=== PATIENT | female | born 1940 | race American Indian/Alaskan Native ===

== ENCOUNTER 2017-01-27 11:07 | Emergency (ER) | payer MEDICARE ==
[2017-01-27 11:47] VITALS: BP 128/67
== END 2017-01-27 11:44 | disposition left against medical advice (07) ==
LOC: ED 11:07
DX: H57.11 Ocular pain, right eye (principal); Z53.21 Procedure and treatment not carried out due to patient leaving prior to being seen by health care provider

== ENCOUNTER 2018-10-30 22:40 | Inpatient (IN) | payer MEDICARE ==
[2018-10-30] MEDS ORDERED: CATAPRES ONE (23:11)
[2018-10-30] MEDS ORDERED: CATAPRES PO ONE (23:15)
[2018-10-30 23:46] LABS: Basophils % (Auto) 0.6 % (0.0-1.8); Eosinophils # (Auto) 0.3 K/mm3 (0.0-0.4); Eosinophils % (Auto) 4.4 % (0.0-4.3); Hematocrit 32.4 % (30.3-42.9); Lymphocytes # (Auto) 3.2 K/mm3 (1.2-5.4); Lymphocytes % (Auto) 43.4 % (13.4-35.0); Mean Corpuscular HGB Conc 34 % (30-34); Mean Corpuscular Volume 83 fl (79-97); Monocytes # (Auto) 0.6 K/mm3 (0.0-0.8); Monocytes % (Auto) 7.9 % (0.0-7.3); Platelet Count 244 K/mm3 (140-440); Red Blood Count 3.92 M/mm3 (3.65-5.03); Red Cell Distribution Width 14.5 % (13.2-15.2)
[2018-10-30 23:57] LABS: INR 1.01 (0.87-1.13)
[2018-10-30 23:58] LABS: Partial Thromboplastin Time 24.1 Sec. (24.2-36.6)
[2018-10-31 00:22] LABS: Alanine Aminotransferase 8 units/L (7-56); Albumin 3.8 g/dL (3.9-5); BUN/Creatinine Ratio 20; Blood Urea Nitrogen 22 mg/dL (7-17); Hemolysis Index 9
--- NOTE | 2018-10-31 01:58 | Emergency Department Report ---
ED Dizziness HPI - General Chief Complaint: Dizziness Stated Complaint: DIZZINESS Time Seen by Provider: 10/31/18 01:13 Source: patient, EMS Mode of arrival: Ambulatory Limitations: No Limitations - History of Present Illness MD Complaint: dizziness, lightheadedness, near syncope -: Sudden, This evening Timing: sudden onset Description: "room spinning", lightheadedness, off-balance, nausea History of Same: No History of Trauma: No Severity: moderate Improves With: remaining still Worsens With: movement, exertion Associated Symptoms: denies other symptoms - Related Data Allergies Allergy/AdvReac Type Severity Reaction Status Date / Time amiodarone Allergy Anaphylaxis Verified 10/30/18 23:18 amlodipine Allergy Shortness Verified 10/30/18 23:12 of Breath latex Allergy Rash Verified 01/27/17 11:43 losartan Allergy Shortness Verified 10/30/18 23:12 of Breath ED Review of Systems ROS: Stated complaint: DIZZINESS Other details as noted in HPI Comment: All other systems reviewed and negative Constitutional: denies: chills, fever Eyes: denies: eye pain, eye discharge, vision change ENT: denies: ear pain, throat pain Respiratory: denies: cough, shortness of breath, wheezing Cardiovascular: denies: chest pain, palpitations Endocrine: no symptoms reported Gastrointestinal: denies: abdominal pain, nausea, diarrhea Genitourinary: denies: urgency, dysuria, discharge Musculoskeletal: denies: back pain, joint swelling, arthralgia Skin: denies: rash, lesions Neurological: denies: headache, weakness, numbness, paresthesias, confusion, abnormal gait, vertigo Psychiatric: denies: anxiety, depression Hematological/Lymphatic: denies: easy bleeding, easy bruising ED Past Medical Hx - Past Medical History Previous Medical History?: Yes Hx Hypertension: Yes Hx Congestive Heart Failure: Yes Hx Diabetes: Yes Hx Arthritis: Yes Additional medical history: thyroid problems - Surgical History Past Surgical History?: Yes Additional Surgical History: hysterectomy, Tubaligation - Social History Smoking Status: Never Smoker Substance Use Type: None ED Physical Exam - General Limitations: No Limitations General appearance: alert, in no apparent distress - Head Head exam: Present: atraumatic, normocephalic, normal inspection - Eye Eye exam: Present: normal appearance, PERRL, EOMI Pupils: Present: normal accommodation - ENT ENT exam: Present: normal exam, mucous membranes dry - Neck Neck exam: Present: normal inspection, full ROM. Absent: tenderness - Respiratory Respiratory exam: Present: normal lung sounds bilaterally. Absent: respiratory distress - Cardiovascular Cardiovascular Exam: Present: regular rate, normal rhythm. Absent: systolic murmur, diastolic murmur, rubs, gallop - GI/Abdominal GI/Abdominal exam: Present: soft, normal bowel sounds. Absent: distended, tenderness, guarding - Extremities Exam Extremities exam: Present: normal inspection, full ROM, normal capillary refill, pedal edema. Absent: tenderness - Back Exam Back exam: Present: normal inspection - Neurological Exam Neurological exam: Present: alert, oriented X3, CN II-XII intact, abnormal gait, other (Unsteady gait) - Psychiatric Psychiatric exam: Present: normal affect, normal mood - Skin Skin exam: Present: warm, dry, intact, normal color. Absent: rash ED Course Vital Signs 10/30/18 10/30/18 10/31/18 22:54 23:53 01:07 Temperature 98.0 F Pulse Rate 66 61 Respiratory 18 Rate Blood Pressure 237/103 237/105 O2 Sat by Pulse 95 99 Oximetry 10/31/18 10/31/18 10/31/18 01:15 01:31 01:45 Temperature Pulse Rate 56 L 51 L 54 L Respiratory 23 18 12 Rate Blood Pressure 182/76 182/76 179/75 O2 Sat by Pulse 99 97 99 Oximetry 10/31/18 10/31/18 10/31/18 02:01 02:15 02:31 Temperature Pulse Rate 51 L 51 L 55 L Respiratory 13 12 16 Rate Blood Pressure 179/75 167/67 167/67 O2 Sat by Pulse 99 100 100 Oximetry 10/31/18 10/31/18 10/31/18 02:45 03:09 03:15 Temperature Pulse Rate 54 L 53 L Respiratory 9 L 15 Rate Blood Pressure 185/78 185/78 204/82 O2 Sat by Pulse 99 99 99 Oximetry - Consultations Consultation #1: 10/31/18 04:09 Dr Basilio to admit patient for further management. ED Medical Decision Making - Lab Data Result diagrams: 10/30/18 23:23 10/30/18 23:23 - EKG Data -: EKG Interpreted by Ut EKG shows normal: sinus rhythm Rate: normal (69) - EKG Data When compared to previous EKG there are: previous EKG unavailable Interpretation: LVH 10/31/18 01:59 No STEMI. - Radiology Data Radiology results: report reviewed, image reviewed CT head without contrast and CXR showed no acute findings. - Medical Decision Making Hypertensive Urgency. Dizziness. Unsteady Gait. Patient will be admitted for further management. Critical care attestation.: If time is entered above; I have spent that time in minutes in the direct care of this critically ill patient, excluding procedure time. ED Disposition Clinical Impression: Uncontrolled hypertension, Dizziness, Malignant hypertensive urgency, Unsteady gait Disposition: 09 OP ADMIT IP TO THIS HOSP Is pt being admited?: Yes Does the pt Need Aspirin: No Condition: Stable Instructions: Hypertension (ED) Referrals: TOMMY NOWAK MD [Primary Care Provider] - 3-5 Days Time of Disposition: 04:09
--- NOTE | 2018-10-31 04:04 | Cat Scan Report ---
FINAL REPORT PROCEDURE: CT HEAD/BRAIN WO CON TECHNIQUE: Computerized tomography of the head was performed without contrast material. HISTORY: Dizziness COMPARISON: No prior studies are available for comparison. FINDINGS: Skull and scalp: Normal. Paranasal sinuses: Normal. Ventricles and subarachnoid spaces: There is central and cortical atrophy appropriate for the patient 's age.. Cerebrum: No evidence of hemorrhage, acute infarction or mass. There is chronic deep white matter isc hemic gliosis. Cerebellum and brainstem: No evidence of hemorrhage, acute infarction or mass. Vasculature: There is calcified plaque in the cavernous portions of the internal carotid arteries and the vertebral arteries.. Comments: None. IMPRESSION: Bony calvarium is intact. There is no hemorrhage, edema, the mass, mass effect or midline shift. There is central and cortical atrophy appropriate for the patient's age.. There is chronic deep white matter ischemic gliosis.
[2018-10-31] MEDS ORDERED: TYLENOL PO PRN (05:20)
[2018-10-31] MEDS ORDERED: ZOFRAN IV PRN (05:23)
[2018-10-31] MEDS ORDERED: D50W (25GM) Syringe IV PRN (05:24)
[2018-10-31] MEDS ORDERED: APRESOLINE ONE (06:05)
--- NOTE | 2018-10-31 06:58 | History and Physical Report ---
CHIEF COMPLAINT: Dizziness. HISTORY OF PRESENT ILLNESS: The patient is a 78-year-old female, presenting with dizziness going on for about 24 hours. The patient also complained of feeling unsteady when she walks with dizziness and also complains of nausea with no vomiting. There is no history of chest pain. No history of shortness of breath. There is no history of numbness, tingling, or change in mental status and the patient presented for evaluation. PAST MEDICAL HISTORY: Pertinent for hypertension, congestive heart failure, diabetes mellitus, arthritis, thyroid disorder. PAST SURGICAL HISTORY: Pertinent for hysterectomy and tubal ligation. FAMILY HISTORY: Family history is noncontributory. SOCIAL HISTORY: The patient does not smoke, does not drink alcohol, and does not use illicit drugs. MEDICATIONS: The patient is on prednisone 2.5 mg by mouth twice daily. ALLERGIES: THE PATIENT IS ALLERGIC TO AMLODIPINE, LATEX, AND LOSARTAN. REVIEW OF SYSTEMS: CONSTITUTIONAL: There is no fever, no chills, no diaphoresis. HEENT: There is no headache or sore throat. CARDIOVASCULAR SYSTEM: There is no chest pain or orthopnea. RESPIRATORY SYSTEM: There is no shortness of breath or cough. GASTROINTESTINAL SYSTEM: Nausea present. No vomiting. No abdominal pain, diarrhea or constipation. NEUROLOGICAL SYSTEM: Dizziness present. No altered mental status and no numbness. MUSCULOSKELETAL SYSTEM: There is no joint pain or swelling. DERMATOLOGICAL SYSTEM: There is no skin rash or itching. GENITOURINARY SYSTEM: There is no dysuria, hematuria, or flank pain. Rest of system review is normal. PHYSICAL EXAMINATION: GENERAL: At the time of exam, the patient was found to be alert, oriented x 3 and not in acute distress. VITAL SIGNS: At the initial time of presentation show temperature of 98, pulse of 66, respirations 18, blood pressure of 237/103, O2 sat of 95%, and blood pressure recorded after about 5 hours show a value of 167/67. HEENT: Shows pupils to be equal, round, reactive to light and accommodating. Extraocular muscles are intact. NECK: Neck is supple with no JVD or carotid bruit. CARDIOVASCULAR SYSTEM: Shows normal first and second heart sounds with no gallops or murmurs. RESPIRATORY SYSTEM: Shows good air entry on both sides of the lungs with no abnormal breath sounds. GASTROINTESTINAL SYSTEM: Shows abdomen to be full, soft, nontender with no organomegaly or rigidity. NEUROLOGICAL: Neuro exam shows no focal deficit. MUSCULOSKELETAL SYSTEM: Shows no joint swelling or tenderness. DERMATOLOGICAL SYSTEM: Shows no skin rash. GENITOURINARY SYSTEM: Showing no costovertebral angle tenderness. PERTINENT LABORATORY AND IMAGING STUDIES: The patient has CBC done with normal white count, normal hemoglobin, and normal hematocrit with elevated monocyte count of 7.9 and elevated eosinophil count of 12.4. The patient's coagulation studies were unremarkable and chemistry came back unremarkable. The patient's troponin level was normal and brain natriuretic peptide level came back normal. Imaging studies, the patient had CT of the head without contrast done that shows no acute intracranial lesion and the patient had also chest x-ray done with no report of any acute lesion noted. DIAGNOSES: 1. Dizziness. 2. Hypertensive crisis. PLAN OF ACTION: 1. The patient will be admitted to telemetry. 2. The patient will be on IV hydralazine 10 mg every 4 hours as needed for blood pressure of 160/90 or more. 3. The patient will be on Tylenol 650 mg by mouth every 4 hours for fever and headache and will be on IV Zofran 4 mg every 8 hours as needed for nausea and vomiting. 4. The patient's diet will be consisting carbohydrate 2 g sodium diet. 5. The patient will be on Accu-Chek before meals and at bedtime followed by low-dose sliding scale using regular insulin coverage. 6. The patient will be on home medication as shown in the medication reconciliation section. 7. The patient will be on sequential compressive device for DVT prophylaxis. JOB# [id number] OCN/NTS
[2018-10-31] MEDS: HumuLIN R SUB-Q SCH ×3 (08:24→16:56)
[2018-10-31] MEDS: APRESOLINE IV PRN ×2 (08:25→17:14)
[2018-10-31] MEDS ORDERED: DELTASONE PO SCH (10:00)
[2018-10-31] MEDS ORDERED: APRESOLINE IV PRN (12:55)
[2018-10-31] MEDS ORDERED: DELTASONE PO PRN (12:55)
--- NOTE | 2018-10-31 14:16 | Progress Note ---
Assessment and Plan Assessment and plan: Patient is 78 yo woman with a history of hypertension, OA, CHF, DM type 2 and Afib who presented to [facility] ED with dizziness with near syncope and nausea w/o vomiting and BP 237/103 HR 76. She recently changed doctors and medications were changed, she went from 100mg losartan daily to Benicar 20mg daily. -Malignant Hypertension: treat with iv hydralazine, restart the losartan -Afib: continue coreg 12.5 mg bid, propafenone (allergy to amiodarone), -CHF, chronic diastolic: continue lasix, bb, arb -Near syncope related to bp most likely prolonged inpatient services 32 minutes History Interval history: Patient was seen and examined. Follow-up on current diagnosis uncontrolled htn. Overnight uneventful. Patient denies any chest pain, shortness breath, wale sea/vomiting or severe headaches. Imaging, nursing note, chart, labs and old chart reviewed. Discussed with patient. Hospitalist Physical - Physical exam Narrative exam: Gen: WDWN, NAD, Awake, Alert, Orientated HEENT: NCAT, EOMI, PERRL, OP Clear Neck: supple, no adenopathy, no thyromegaly, no JVD CVS/Heart: RRR, normal S1S2, pulses present bilaterally Chest/Lungs: CTA B, Symmetrical chest expansion, good air entry bilaterally GI/Abdomen: soft, NTND, good bowel sounds, no guarding or rebound /Bladder: no suprapubic tenderness, no CVA or paraspinal tenderness Extermity/Skin: no c/c/e, no obvious rash MSK: FROM x 4 Neuro: CN 2-12 grossly intact, no new focal deficits Psych: calm - Constitutional Vitals: Temp Pulse Resp BP Pulse Ox 98.6 F 66 11 L 161/66 100 10/31/18 08:00 10/31/18 13:51 10/31/18 13:51 10/31/18 13:51 10/31/18 13:51 Results - Labs CBC & Chem 7: 10/30/18 23:23 10/30/18 23:23 Labs: Laboratory Last Values WBC 7.4 K/mm3 (4.5-11.0) 10/30/18 23:23 RBC 3.92 M/mm3 (3.65-5.03) 10/30/18 23:23 Hgb 11.0 gm/dl (10.1-14.3) 10/30/18 23:23 Hct 32.4 % (30.3-42.9) 10/30/18 23:23 MCV 83 fl (79-97) 10/30/18 23:23 MCH 28 pg (28-32) 10/30/18 23:23 MCHC 34 % (30-34) 10/30/18 23:23 RDW 14.5 % (13.2-15.2) 10/30/18 23:23 Plt Count 244 K/mm3 (140-440) 10/30/18 23:23 Lymph % (Auto) 43.4 % (13.4-35.0) H 10/30/18 23:23 [place] % (Auto) 7.9 % (0.0-7.3) H 10/30/18 23:23 Eos % (Auto) 4.4 % (0.0-4.3) H 10/30/18 23:23 Baso % (Auto) 0.6 % (0.0-1.8) 10/30/18 23:23 Lymph # 3.2 K/mm3 (1.2-5.4) 10/30/18 23:23 [place] # 0.6 K/mm3 (0.0-0.8) 10/30/18 23:23 Eos # 0.3 K/mm3 (0.0-0.4) 10/30/18 23:23 Baso # 0.0 K/mm3 (0.0-0.1) 10/30/18 23:23 Seg Neutrophils % 43.7 % (40.0-70.0) 10/30/18 23:23 Seg Neutrophils # 3.2 K/mm3 (1.8-7.7) 10/30/18 23:23 PT 13.9 Sec. (12.2-14.9) 10/30/18 23:23 INR 1.01 (0.87-1.13) 10/30/18 23:23 APTT 24.1 Sec. (24.2-36.6) L 10/30/18 23:23 Sodium 141 mmol/L (137-145) 10/30/18 23:23 Potassium 4.4 mmol/L (3.6-5.0) 10/30/18 23:23 Chloride 105.3 mmol/L (98-107) 10/30/18 23:23 Carbon Dioxide 26 mmol/L (22-30) 10/30/18 23:23 Anion Gap 14 mmol/L 10/30/18 23:23 BUN 22 mg/dL (7-17) H 10/30/18 23:23 Creatinine 1.1 mg/dL (0.7-1.2) 10/30/18 23:23 Estimated GFR 58 ml/min 10/30/18 23:23 BUN/Creatinine Ratio 20 % 10/30/18 23:23 Glucose 107 mg/dL (65-100) H 10/30/18 23:23 POC Glucose 120 (70-105) H 10/31/18 08:21 Calcium 9.0 mg/dL (8.4-10.2) 10/30/18 23:23 Total Bilirubin < 0.20 mg/dL (0.1-1.2) 10/30/18 23:23 AST 15 units/L (5-40) 10/30/18 23:23 ALT 8 units/L (7-56) 10/30/18 23:23 Alkaline Phosphatase 99 units/L (35-129) 10/30/18 23:23 Total Creatine Kinase 125 units/L (30-135) 10/30/18 23:23 Troponin T < 0.010 ng/mL (0.00-0.029) 10/30/18 23:23 NT-Pro-B Natriuret Pep 237.5 pg/mL (0-900) 10/31/18 Unknown Total Protein 7.8 g/dL (6.3-8.2) 10/30/18 23:23 Albumin 3.8 g/dL (3.9-5) L 10/30/18 23:23 Albumin/Globulin Ratio 1.0 % 10/30/18 23:23
[2018-10-31] MEDS: LASIX PO SCH (15:27)
[2018-10-31] MEDS: ELIQUIS PO SCH ×2 (15:28→22:55)
[2018-10-31] MEDS ORDERED: HumuLIN R SUB-Q SCH (22:00)
[2018-10-31] MEDS ORDERED: LANTUS SUB-Q SCH (22:00)
[2018-10-31] MEDS ORDERED: RYTHMOL PO SCH (22:00)
[2018-10-31] MEDS ORDERED: PROPAFENONE HCL 225 MG PO SCH (22:00)
[2018-10-31] MEDS: COREG PO SCH (22:54)
[2018-11-01 08:26] VITALS: BP 152/64
[2018-11-01] MEDS: HumuLIN R SUB-Q SCH ×2 (08:38→12:05)
[2018-11-01] MEDS: LASIX PO SCH (09:59)
[2018-11-01] MEDS: COREG PO SCH (09:59)
[2018-11-01] MEDS ORDERED: BABY ASPIRIN PO SCH (10:00)
[2018-11-01] MEDS: ELIQUIS PO SCH (10:00)
--- NOTE | 2018-11-01 10:40 | Discharge Summary ---
Providers - Providers Date of Admission: 10/31/18 04:11 Date of discharge: 11/01/18 Attending physician: ANNY NUNEZ Primary care physician: TOMMY NOWAK Hospitalization Condition: Stable Hospital course: Patient is 78 yo woman with a history of hypertension, OA, CHF, DM type 2 and Afib who presented to [facility] ED with dizziness with near syncope and nausea w/o vomiting and BP 237/103 HR 76. She recently changed doctors and medications were changed, she went from 100mg losartan daily to Benicar 20mg daily. -Malignant Hypertension: treat with iv hydralazine, no KAY/ARB due to cough -Afib: continue coreg 12.5 mg bid, propafenone (allergy to amiodarone), -CHF, chronic diastolic: continue lasix, bb, arb -Near syncope related to bp most likely -Type 2 DM on insulin: continue insulin Disposition: DC-01 TO HOME OR SELFCARE Time spent for discharge: 35 minutes Core Measure Documentation - Palliative Care Palliative Care/ Comfort Measures: Not Applicable - Core Measures Any of the following diagnoses?: none - VTE Discharge Requirements Deep Vein Thrombosis/Pulmonary Embolism Present on Admission: No Has pt received <5 days of overlap therapy or INR<2.0: No Anticoagulant overlap therapy prescribed at discharge: No Contraindication No Overlap Therapy order at DC: Not Indicated Exam - Physical Exam Narrative exam: Gen: WDWN, NAD, Awake, Alert, Orientated HEENT: NCAT, EOMI, PERRL, OP Clear Neck: supple, no adenopathy, no thyromegaly, no JVD CVS/Heart: RRR, normal S1S2, pulses present bilaterally Chest/Lungs: CTA B, Symmetrical chest expansion, good air entry bilaterally GI/Abdomen: soft, NTND, good bowel sounds, no guarding or rebound /Bladder: no suprapubic tenderness, no CVA or paraspinal tenderness Extermity/Skin: no c/c/e, no obvious rash MSK: FROM x 4 Neuro: CN 2-12 grossly intact, no new focal deficits Psych: calm - Constitutional Vitals: Temp Pulse Resp BP Pulse Ox 98.9 F 59 L 18 152/64 97 11/01/18 07:50 11/01/18 09:59 11/01/18 07:50 11/01/18 09:59 11/01/18 07:50 Plan Activity: other (no strenous activity unless cleared by PCP) Diet: low salt, diabetic Special Instructions: record daily BP diary, record blood sugar diary Follow up with: TOMMY NOWAK MD [Primary Care Provider] - 3-5 Days
--- NOTE | 2018-11-02 08:19 | XRay Report ---
FINAL REPORT EXAM: XRAY CHEST 2 VIEWS HISTORY: SOB TECHNIQUE: A single portable view of the chest was obtained. FINDINGS: The heart size is at the upper limits of normal. The lungs are clear. The lungs are not congested. Pl eural fluid is not seen. The skeletal structures appear well maintained. IMPRESSION: No acute cardiopulmonary process.
== END 2018-11-01 12:52 | disposition home or self-care (01) | DRG 305 ==
LOC: ED 22:40 → IMCU 10-31 04:11 → 2B-ACE 10-31 20:50
PROVIDERS: ADMIT Internal Medicine; ATTEND Internal Medicine
DX: I16.0 Hypertensive urgency (principal); I50.32 Chronic diastolic (congestive) heart failure; I48.91 Unspecified atrial fibrillation; M19.90 Unspecified osteoarthritis, unspecified site; I11.0 Hypertensive heart disease with heart failure; E11.9 Type 2 diabetes mellitus without complications; R26.81 Unsteadiness on feet; Z91.040 Latex allergy status; Z90.710 Acquired absence of both cervix and uterus; Z98.51 Tubal ligation status
CPT/HCPCS: 36415; 70450; 71045; 80053; 82550; 82962; 83880; 84484; 85025; 85610; 85730; 93005; 93010; G0378; J0360; J1815; J7512

== ENCOUNTER 2019-02-05 12:12 | Emergency (ER) | payer MEDICARE ==
[2019-02-05 12:22] VITALS: BP 146/62
--- NOTE | 2019-02-05 12:41 | Emergency Department Report ---
ED Rash HPI - HPI Chief Complaint: Skin Rash Stated Complaint: RASH Time Seen by Provider: 02/05/19 12:34 Duration: 3 Days Location: Neck, Chest, Back, Upper Extremities, Lower Extremities Rash Symptoms: Yes Itching, No Facial Swelling, No Tongue/Oral Swelling, No Breathing Difficulties, No Choking Sensation, No Wheezing/Dyspnea, No Peeling, No Blistering, No Fever, No Lightheaded, No Malaise, No Myalgias Severity: moderate ED Review of Systems ROS: Stated complaint: RASH Other details as noted in HPI Comment: All other systems reviewed and negative Constitutional: denies: chills, fever, weakness Respiratory: denies: cough, shortness of breath, wheezing Cardiovascular: denies: chest pain, palpitations Skin: rash, pruritus. denies: lesions, change in color, change in hair/nails, other Neurological: denies: headache, weakness ED Past Medical Hx - Past Medical History Previous Medical History?: Yes Hx Hypertension: Yes Hx Congestive Heart Failure: Yes Hx Diabetes: Yes Hx Arthritis: Yes Additional medical history: thyroid problems. afib - Surgical History Past Surgical History?: Yes Additional Surgical History: hysterectomy, Tubaligation - Social History Smoking Status: Never Smoker Substance Use Type: None - Medications Home Medications: Home Medications Medication Instructions Recorded Confirmed Last Taken Type Apixaban [Eliquis] 2.5 mg PO BID 10/31/18 10/31/18 10/30/18 History Aspirin 81 mg PO DAILY 10/31/18 10/31/18 10/30/18 History Ferrous Sulfate [Iron 325 MG] 325 mg PO DAILY 10/31/18 10/31/18 10/30/18 08:00 History Furosemide [Lasix] 40 mg PO DAILY 10/31/18 10/31/18 10/30/18 History Insulin Glargine,Hum.rec.anlog 9 unit SQ HS 10/31/18 10/31/18 10/30/18 History [Lantus] Propafenone HCl [Propafenone HCl 225 mg PO BID 10/31/18 10/31/18 10/30/18 History ER] Carvedilol 12.5 mg PO BID #30 11/01/18 10/31/18 10/30/18 Rx predniSONE [Prednisone] 2.5 mg PO BID PRN #10 02/10/31/18 10/30/18 Rx Rash Exam - Exam General: Vital signs noted. No distress. Alert and acting appropriately. HEENT: No Periorbital Edema, No Conjuctival Injection, No Chemosis, No Perioral Edema, No Tongue Edema, No Uvular Edema, No Compromised Airway, No Drooling Lungs: Yes Good Air Exchange, No Wheezes, No Ronchi, No Stridor, No Cough, No Labored Respirations, No Retractions, No Use of Accessory Muscles, No Other Abnormal Lung Sounds Heart: Yes Regular, No Murmur Skin: Yes Urticarial Rash, Yes Maculopapular Rash, No Morbilliform rash, No Bulla(e), No Excoriations, No Weeping, No Tenderness, No Erythema, No Edema, No Encrustations, No Other Other: Positive: Abdomen Normal, Neurologic Normal, Musculoskeletal Normal ED Course Vital Signs 02/05/19 12:19 Temperature 97.8 F Pulse Rate 62 Respiratory 16 Rate Blood Pressure 146/62 O2 Sat by Pulse 98 Oximetry Critical care attestation.: If time is entered above; I have spent that time in minutes in the direct care of this critically ill patient, excluding procedure time. ED Disposition Clinical Impression: Skin rash, Allergic reaction Disposition: -01 TO HOME OR SELFCARE Is pt being admited?: No Condition: Stable Instructions: Allergies (ED) Referrals: TOMMY NOWAK MD [Primary Care Provider] - 3-5 Days
== END 2019-02-05 12:53 | disposition home or self-care (01) ==
LOC: ED 12:12
DX: T78.40XA Allergy, unspecified, initial encounter (principal); I11.0 Hypertensive heart disease with heart failure; I50.9 Heart failure, unspecified; E11.9 Type 2 diabetes mellitus without complications; M19.90 Unspecified osteoarthritis, unspecified site; I48.91 Unspecified atrial fibrillation; Z90.710 Acquired absence of both cervix and uterus; Z98.51 Tubal ligation status; Z91.040 Latex allergy status; Z88.6 Allergy status to analgesic agent; Z88.8 Allergy status to other drugs, medicaments and biological substances; X58.XXXA Exposure to other specified factors, initial encounter
CPT/HCPCS: 99282

== ENCOUNTER 2022-03-10 23:25 | Emergency (ER) | payer MEDICARE ==
[2022-03-11 01:04] LABS: Bilirubin,Urine NEG (Negative); Blood,Urine MOD (Negative); Color,Urine Yellow (Yellow); Urobilinogen,Urine < 2.0 mg/dL (<2.0)
[2022-03-11 01:09] LABS: Mucus,Urine FEW /HPF
[2022-03-11 01:30] LABS: Basophils % (Auto) 0.4 % (0.0-1.8); Eosinophils # (Auto) 0.1 K/mm3 (0.0-0.4); Eosinophils % (Auto) 1.8 % (0.0-4.3); Hematocrit 32.6 % (30.3-42.9); Hemoglobin 10.9 gm/dl (10.1-14.3); Lymphocytes # (Auto) 1.7 K/mm3 (1.2-5.4); Lymphocytes % (Auto) 24.6 % (13.4-35.0); Mean Corpuscular HGB Conc 34 % (30-34); Mean Corpuscular Volume 81 fl (79-97); Monocytes # (Auto) 0.4 K/mm3 (0.0-0.8); Platelet Count 261 K/mm3 (140-440); Red Blood Count 4.01 M/mm3 (3.65-5.03); Red Cell Distribution Width 14.8 % (13.2-15.2)
[2022-03-11 01:37] LABS: Alanine Aminotransferase 8 units/L (7-56); Albumin 4.3 g/dL (3.9-5); BUN/Creatinine Ratio 21; Blood Urea Nitrogen 21 mg/dL (7-17); Calcium 9.5 mg/dL (8.4-10.2); Hemolysis Index 5
[2022-03-11] MEDS ORDERED: oxyCODONE /ACETAMINOPHEN 5-325MG TAB PO ONE (05:05)
[2022-03-11] MEDS ORDERED: MORPHINE 4 MG/1 ML INJ IV ONE (05:07)
[2022-03-11] MEDS ORDERED: ACETAMINOPHEN 325 MG TAB PO ONE (05:07)
--- NOTE | 2022-03-11 05:07 | Event Note ---
Date: 03/11/22 The patient was evaluated in the emergency department for symptoms described in the history of present illness. He/she was evaluated in the context of the global COVID-19 pandemic, which necessitated consideration that the patient might be at risk for infection with the virus that causes COVID-19. Institutional protocols and algorithms that pertain to the evaluation of patients at risk for COVID-19 are in a state of rapid change based on information released by regulatory bodies including the CDC and federal and state organizations. These policies and algorithms were followed during the patient's care in the emergency department. Please note that these policies, procedures and recommendations changed on a rapid basis. Medical screening examination note: 81-year-old female, presenting to the department today with complaint of left lower quadrant pain and left paralumbar back pain, that radiates down the left lower extremity x1 day. Pressure mild dysuria. No extremity weakness is endorsed. She is tender in her left lower quadrant. She is currently on systemic anticoagulation for history of pulmonary embolism diagnosed 2 years ago. She reports that this is her first lifetime pulmonary embolism. Treat patient's pain. Obtain appropriate laboratory studies. Obtain CT scan of the abdomen pelvis with and without IV contrast. Detailed history and physical to be performed by oncoming provider. 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 They have articulated understanding and they are agreeable to the plan of care Vital Signs 03/10/22 23:35 Temperature 98.7 F Pulse Rate 82 Respiratory 20 Rate Blood Pressure 194/86 O2 Sat by Pulse 96 Oximetry Lab Results 03/10/22 03/11/22 03/11/22 Range/Units Unknown 01:02 01:02 WBC 7.0 (4.5-11.0) K/mm3 RBC 4.01 (3.65-5.03) M/mm3 Hgb 10.9 (10.1-14.3) gm/dl Hct 32.6 (30.3-42.9) % MCV 81 (79-97) fl MCH 27 L (28-32) pg MCHC 34 (30-34) % RDW 14.8 (13.2-15.2) % Plt Count 261 (140-440) K/mm3 Lymph % (Auto) 24.6 (13.4-35.0) % [place] % (Auto) 6.0 (0.0-7.3) % Eos % (Auto) 1.8 (0.0-4.3) % Baso % (Auto) 0.4 (0.0-1.8) % Lymph # (Auto) 1.7 (1.2-5.4) K/mm3 [place] # (Auto) 0.4 (0.0-0.8) K/mm3 Eos # (Auto) 0.1 (0.0-0.4) K/mm3 Baso # (Auto) 0.0 (0.0-0.1) K/mm3 Seg Neutrophils % 67.2 (40.0-70.0) % Seg Neutrophils # 4.7 (1.8-7.7) K/mm3 Sodium 136 L (137-145) mmol/L Potassium 4.3 (3.6-5.0) mmol/L Chloride 100.8 (98-107) mmol/L Carbon Dioxide 24 (22-30) mmol/L Anion Gap 16 mmol/L BUN 21 H (7-17) mg/dL Creatinine 1.0 (0.6-1.2) mg/dL Estimated GFR > 60 ml/min BUN/Creatinine Ratio 21 % Glucose 173 H (65-100) mg/dL Calcium 9.5 (8.4-10.2) mg/dL Total Bilirubin 0.20 (0.1-1.2) mg/dL AST 16 (5-40) units/L ALT 8 (7-56) units/L Alkaline Phosphatase 113 (35-129) units/L Total Protein 8.4 H (6.3-8.2) g/dL Albumin 4.3 (3.9-5) g/dL Albumin/Globulin Ratio 1.0 % Urine Color Yellow (Yellow) Urine Turbidity Slightly-cloudy (Clear) Urine pH 6.0 (5.0-7.0) Ur Specific [place] 1.013 (1.003-1.030) Urine Protein 30 mg/dl (Negative) mg/dL Urine Glucose (UA) 50 (Negative) mg/dL Urine Ketones Neg (Negative) mg/dL Urine Blood Mod (Negative) Urine Nitrite Neg (Negative) Urine Bilirubin Neg (Negative) Urine Urobilinogen < 2.0 (<2.0) mg/dL Ur Leukocyte Esterase Tr (Negative) Urine WBC (Auto) 10.0 H (0.0-6.0) /HPF Urine RBC (Auto) 4.0 (0.0-6.0) /HPF U Epithel Cells (Auto) 2.0 (0-13.0) /HPF Urine Mucus Few /HPF
[2022-03-11] MEDS ORDERED: ONDANSETRON 4 MG/2 ML INJ IV ONE (05:24)
[2022-03-11] MEDS ORDERED: ONDANSETRON 4 MG/2 ML INJ ONE (05:25)
--- NOTE | 2022-03-11 06:18 | Cat Scan Report ---
CT ABDOMEN AND PELVIS WITH CONTRAST INDICATION / CLINICAL INFORMATION: Left Lower Quadrant pain, Left flank pain that rad. TECHNIQUE: Axial CT images were obtained through the abdomen and pelvis after 100 cc of Omnipaque [address] scans at this location are performed using CT dose reduction for ALARA by means of automated exposure control. COMPARISON: None available. FINDINGS: LOWER CHEST: Mild bronchiectasis. AORTA / ARTERIES: Mild atherosclerotic calcification without acute abnormality. IVC / VEINS: No significant abnormality. LYMPH NODES: No significant adenopathy. COLON: No significant abnormality. APPENDIX: Appendectomy. STOMACH / SMALL BOWEL: No significant abnormality. PERITONEUM: No free fluid. No free air. No fluid collection. LIVER: Scattered cysts GALLBLADDER: No significant abnormality. BILE DUCTS: No significant abnormality. PANCREAS: No significant abnormality. SPLEEN: No significant abnormality. ADRENALS: No significant abnormality. RIGHT KIDNEY / URETER: No significant abnormality. LEFT KIDNEY / URETER: No significant abnormality. URINARY BLADDER: No significant abnormality. REPRODUCTIVE ORGANS: Uterus is absent. No significant adnexal abnormality. SKELETAL SYSTEM: Degenerative grade 1 anterolisthesis of L4 on L5. Scattered degeneration throughout the visualized osseous structures. ADDITIONAL FINDINGS: None. IMPRESSION: 1. No CT findings to explain symptomatology. Signer Name: Flip Vizcarra DO Signed: 03/11/2022 6:14 AM Workstation Name: [id number]
--- NOTE | 2022-03-11 07:20 | Emergency Department Report ---
ED Abdominal Pain HPI - General Chief Complaint: Abdominal Pain Stated Complaint: BODY PAIN Time Seen by Provider: 03/11/22 06:38 Source: patient Mode of arrival: Ambulatory Limitations: No Limitations - History of Present Illness Initial Comments: 81 yo F brought into the ED with left lower abdominal pain that started yesterday and progressively getting worse. No fever or chill reported. Last BM was yesterday and was minimal she says. Pt rated pain as 10/10 in severity but says the initial pain medication given during medical screening time help bring the pain to minimum at this point. She also denies any urinary symptoms like frequency or urgency. No diarrhea but reports some intermittent constipation. Pt however has history pulmonary embolism 2 year ago and currently on anticoagulation. No other modifying or associated factors. MD Complaint: abdominal pain Severity scale (0 -10): 0 - Related Data Home Medications Medication Instructions Recorded Confirmed Last Taken Apixaban [Eliquis] 2.5 mg PO BID 10/31/18 10/31/18 10/30/18 Aspirin 81 mg PO DAILY 10/31/18 10/31/18 10/30/18 Ferrous Sulfate [Iron 325 MG] 325 mg PO DAILY 10/31/18 10/31/18 10/30/18 08:00 Furosemide [Lasix] 40 mg PO DAILY 10/31/18 10/31/18 10/30/18 Insulin Glargine,Hum.rec.anlog 9 unit SQ HS 10/31/18 10/31/18 10/30/18 [Lantus] Propafenone HCl [Propafenone HCl 225 mg PO BID 10/31/18 10/31/18 10/30/18 ER] Previous Rx's Medication Instructions Recorded Last Taken Type carvediloL [Carvedilol] 12.5 mg PO BID #30 11/01/18 10/30/18 Rx predniSONE [Prednisone] 2.5 mg PO BID PRN #10 11/01/18 10/30/18 Rx Prednisone [predniSONE 10 mg 10 mg PO .TAPER #1 tab.ds.pk 02/05/19 Unknown Rx (6-Day Pack, 21 Tabs)] diphenhydrAMINE [Benadryl CAP] 25 mg PO Q6HR PRN #30 capsule 02/05/19 Unknown Rx Allergies Allergy/AdvReac Type Severity Reaction Status Date / Time amiodarone Allergy Anaphylaxis Verified 10/30/18 23:18 amlodipine Allergy Shortness Verified 10/30/18 23:12 of Breath latex Allergy Rash Verified 01/27/17 11:43 losartan Allergy Shortness Verified 10/30/18 23:12 of Breath ED Review of Systems ROS: Stated complaint: BODY PAIN Other details as noted in HPI Comment: All other systems reviewed and negative Gastrointestinal: abdominal pain, constipation. denies: nausea, vomiting, diarrhea ED Past Medical Hx - Past Medical History Hx Hypertension: Yes Hx Congestive Heart Failure: Yes Hx Diabetes: Yes Hx Arthritis: Yes Additional medical history: thyroid problems. afib - Surgical History Additional Surgical History: hysterectomy, Tubaligation - Social History Smoking Status: Never Smoker Substance Use Type: None - Medications Home Medications: Home Medications Medication Instructions Recorded Confirmed Last Taken Type Apixaban [Eliquis] 2.5 mg PO BID 10/31/18 10/31/18 10/30/18 History Aspirin 81 mg PO DAILY 10/31/18 10/31/18 10/30/18 History Ferrous Sulfate [Iron 325 MG] 325 mg PO DAILY 10/31/18 10/31/18 10/30/18 08:00 History Furosemide [Lasix] 40 mg PO DAILY 10/31/18 10/31/18 10/30/18 History Insulin Glargine,Hum.rec.anlog 9 unit SQ HS 10/31/18 10/31/18 10/30/18 History [Lantus] Propafenone HCl [Propafenone HCl 225 mg PO BID 10/31/18 10/31/18 10/30/18 History ER] carvediloL [Carvedilol] 12.5 mg PO BID #30 11/01/18 10/31/18 10/30/18 Rx predniSONE [Prednisone] 2.5 mg PO BID PRN #10 11/01/18 10/31/18 10/30/18 Rx Prednisone [predniSONE 10 mg 10 mg PO .TAPER #1 tab.ds.pk 02/05/19 Unknown Rx (6-Day Pack, 21 Tabs)] diphenhydrAMINE [Benadryl CAP] 25 mg PO Q6HR PRN #30 capsule 02/05/19 Unknown Rx ED Physical Exam - General Limitations: No Limitations General appearance: alert, in no apparent distress - Head Head exam: Present: atraumatic, normal inspection - Eye Eye exam: Present: normal appearance Pupils: Present: normal accommodation - ENT ENT exam: Present: normal exam, normal orophraynx, mucous membranes moist - Neck Neck exam: Absent: tenderness - Respiratory Respiratory exam: Present: normal lung sounds bilaterally. Absent: respiratory distress, accessory muscle use - Cardiovascular Cardiovascular Exam: Present: regular rate, normal rhythm, normal heart sounds - GI/Abdominal GI/Abdominal exam: Present: soft, tenderness (LLQ), normal bowel sounds. Absent: distended - Extremities Exam Extremities exam: Present: normal inspection, normal capillary refill. Absent: tenderness, pedal edema - Back Exam Back exam: Absent: tenderness, CVA tenderness (R), CVA tenderness (L) - Neurological Exam Neurological exam: Present: alert, oriented X3 - Psychiatric Psychiatric exam: Present: normal affect, normal mood - Skin Skin exam: Present: warm, normal color ED Course Vital Signs 03/10/22 03/11/22 03/11/22 23:35 05:19 07:05 Temperature 98.7 F 97.9 F Pulse Rate 82 82 Respiratory 20 18 Rate Blood Pressure 194/86 196/92 O2 Sat by Pulse 96 100 95 Oximetry 03/11/22 03/11/22 03/11/22 07:16 08:16 08:25 Temperature Pulse Rate 68 67 65 Respiratory 17 18 Rate Blood Pressure 185/86 179/84 179/84 O2 Sat by Pulse 96 97 Oximetry 03/11/22 03/11/22 08:30 08:46 Temperature Pulse Rate 60 64 Respiratory 19 16 Rate Blood Pressure 179/84 153/77 O2 Sat by Pulse Oximetry - Reevaluation(s) Reevaluation #1: 03/11/22 10:45 noted with hypertension and given labetolol 10 mg with improvement in blood pressure now. CT abd/pel did not show any significant acute findings-- pt reassured to follow up with her PCP and continue her current medication by her doctor. ED Medical Decision Making - Lab Data Result diagrams: 03/11/22 01:02 03/11/22 01:02 - Radiology Data FINDINGS: LOWER CHEST: Mild bronchiectasis. AORTA / ARTERIES: Mild atherosclerotic calcification without acute abnormality. IVC / VEINS: No significant abnormality. LYMPH NODES: No significant adenopathy. COLON: No significant abnormality. APPENDIX: Appendectomy. STOMACH / SMALL BOWEL: No significant abnormality. PERITONEUM: No free fluid. No free air. No fluid collection. LIVER: Scattered cysts GALLBLADDER: No significant abnormality. BILE DUCTS: No significant abnormality. PANCREAS: No significant abnormality. SPLEEN: No significant abnormality. ADRENALS: No significant abnormality. RIGHT KIDNEY / URETER: No significant abnormality. LEFT KIDNEY / URETER: No significant abnormality. URINARY BLADDER: No significant abnormality. REPRODUCTIVE ORGANS: Uterus is absent. No significant adnexal abnormality. SKELETAL SYSTEM: Degenerative grade 1 anterolisthesis of L4 on L5. Scattered degeneration throughout the visualized osseous structures. ADDITIONAL FINDINGS: None. IMPRESSION: 1. No CT findings to explain symptomatology. - Medical Decision Making Here with abdominal pain--which is likely diverticulitis but not limited to appendicitis, cholecystitis, cholelithiasis, nephrolithiasis, gastritis, pancreatitis, duodenitis, colitis, irritable bowel syndrome, cystitis, so in order to rule this out we will go ahead and order routine acute abdomen that include CBC, CMP, urinalysis, and CT imaging of the abdomen/pelvic. Critical care attestation.: If time is entered above; I have spent that time in minutes in the direct care of this critically ill patient, excluding procedure time. ED Disposition Clinical Impression: Abdominal pain Qualifiers: Abdominal location: left lower quadrant Qualified Code(s): R10.32 - Left lower quadrant pain Hypertension Qualifiers: Hypertension type: unspecified Qualified Code(s): I10 - Essential (primary) hypertension Disposition: 01 HOME / SELF CARE / HOMELESS Is pt being admited?: No Does the pt Need Aspirin: No Condition: Stable Instructions: Abdominal Pain, Adult, [id number], Preventing Hypertension, Abdominal Pain (ED), Hypertension (ED), Hypertension, Adult, [id number] Additional Instructions: Please continue your current medication as prescribed by your primary doctor Increase your daily fluid to help your hydration Start with a bland diet advance as tolerated in order not to aggravate your abdominal symptoms. Please call and schedule a follow-up with your primary doctor in the next 3 to 5 days for progress Please do not hesitate to call or return to emergency room if your symptoms worsen Referrals: PRIMARY MD RADHA [Primary Care Provider] - 3-5 Days Time of Disposition: 10:48
[2022-03-11 08:56] VITALS: BP 153/77
== END 2022-03-11 11:08 | disposition home or self-care (01) ==
LOC: ED 23:25
DX: R10.32 Left lower quadrant pain (principal); I10 Essential (primary) hypertension; I11.0 Hypertensive heart disease with heart failure; I50.9 Heart failure, unspecified; E11.9 Type 2 diabetes mellitus without complications; M19.90 Unspecified osteoarthritis, unspecified site; E07.9 Disorder of thyroid, unspecified; I48.91 Unspecified atrial fibrillation; Z90.710 Acquired absence of both cervix and uterus; Z98.890 Other specified postprocedural states; Z88.1 Allergy status to other antibiotic agents; Z88.8 Allergy status to other drugs, medicaments and biological substances; Z91.040 Latex allergy status
CPT/HCPCS: 36415; 74177; 80053; 81001; 85025; 87086; 96374; 96375; 99284; J2270; J2405; J3490; Q9967